=== PATIENT | female | born 1995 | race African-American/Black ===

== ENCOUNTER 2023-01-10 12:12 | Emergency (ER) | payer OTHER ==
[~2023-01-10] VITALS: Ht 157.5 cm; Wt 61.2 kg
[2023-01-10 12:22] VITALS: BP 125/75
--- NOTE | 2023-01-10 12:22 | NUR ---
C/O RIGHT FOOT PAIN X 1 WEEK. PT DENIES ANY TRAUMA.
[2023-01-10] MEDS ORDERED: IBUP-1957 PO (12:49)
--- NOTE | 2023-01-10 12:56 | NUR ---
Patient discharged to home in stable condition. Written and verbal after care instructions given. Patient verbalizes understanding of instruction.
== END 2023-01-10 12:57 | disposition home or self-care (01) ==
LOC: ER 12:18
DX: S93.691A Other sprain of right foot, initial encounter (principal); Z60.2 Problems related to living alone; Z79.899 Other long term (current) drug therapy; Y93.39 Activity, other involving climbing, rappelling and jumping off; Y93.89 Activity, other specified; Y92.89 Other specified places as the place of occurrence of the external cause; Y99.8 Other external cause status
CPT/HCPCS: 73630-TC